=== PATIENT | male | born 1985 | race Caucasian/White ===

== ENCOUNTER 2020-04-28 20:30 | Emergency (ER) | payer SELFPAY ==
[~2020-04-28] VITALS: Ht 175.3 cm; Wt 68.5 kg
[~2020-04-28 20:30] MED LIST: ATOM60CA PO; DIVA500T2 PO; [UNRECOGNIZED DRUG - OTHER] PO
--- NOTE | 2020-04-28 21:51 | NUR ---
PT C/O LEFT CHEST PAIN STARTED YESTERDAY RADIATING TO LEFT ARM. NO CARDIAC HX. PT LAST USED [facility] THIS AM. PT CONNECTED TO MONITORING. CALL LIGHT IN REACH. XRAY COMPLETE. EKG IN TRIAGE.
[2020-04-28 23:04] LABS: BASOPHILS % (AUTO) 0 % (0-1); EOSINOPHILS % (AUTO) 0 % (1-7); LYMPHOCYTES % (AUTO) 23 % (22-44); MEAN CORPUSCULAR HEMOGLOBIN 33.2 pg (27.5-34.5); MEAN CORPUSCULAR HGB CONC 34.3 g/dL (33.2-36.2); MEAN PLATELET VOLUME 8.9 fL (7.4-10.4); MONOCYTES % (AUTO) 6 % (2-9); NEUTROPHILS % (AUTO) 71 % (42-75); PLATELET COUNT 274 x10^3/uL (130-400); RED BLOOD COUNT 4.86 x10^6/uL (4.38-5.82); RED CELL DISTRIBUTION WIDTH 13.7 % (9.4-14.8)
[2020-04-28 23:10] LABS: MD NO
--- NOTE | 2020-04-28 23:10 | NUR ---
received report from LUIS Gonzalez.
[2020-04-28 23:11] LABS: ALBUMIN 4.2 g/dL (3.4-5.0); ANION GAP 7 mmol/L (5-15); CALCIUM 9.2 mg/dL (8.5-10.1); CHLORIDE 110 mmol/L (98-107); CREATININE 0.91 mg/dL (0.7-1.3)
[2020-04-28 23:15] LABS: TROPONIN I < 0.015 ng/mL (0.000-0.045)
--- NOTE | 2020-04-28 23:17 | NUR ---
REPORT GIVEN TO KENIA SMITH.
[2020-04-29 00:14] VITALS: BP 133/79
--- NOTE | 2020-04-29 00:16 | NUR ---
re-evaluation done. patient discharged with instruction. verbalized understanding.
== END 2020-04-29 00:18 | disposition home or self-care (01) ==
LOC: ED 23:40
DX: R07.89 Other chest pain (principal); R00.0 Tachycardia, unspecified; R06.02 Shortness of breath; J45.909 Unspecified asthma, uncomplicated; F17.210 Nicotine dependence, cigarettes, uncomplicated
CPT/HCPCS: 36415; 71045; 80048; 82040; 84484; 85025; 85379; 93005; 99285; 99406